=== PATIENT | female | born 1975 | race Caucasian/White ===

== ENCOUNTER 2017-12-24 15:13 | Emergency (ER) | payer MEDICAID ==
[~2017-12-24] VITALS: Ht 154.9 cm; Wt 87.1 kg
[2017-12-24 15:18] VITALS: BP 120/83
--- NOTE | 2017-12-24 16:48 | NUR ---
PT AMBULATES TO BED 6
--- NOTE | 2017-12-24 16:58 | NUR ---
42 YO FEMALE BIB SELF FOR LEFT ANKLE PAIN . DENIES N/V/D; SKIN IS PINK/WARM/DRY; AAOX4 WITH EVEN AND STEADY GAIT; LUNGS CLEAR BL; HR EVEN AND REGULAR; PT DENIES ANY FEVER, CP, SOB, OR COUGH AT THIS TIME; PATIENT STATES PAIN OF 8/10 AT THIS TIME; VSS; PATIENT POSITIONED FOR COMFORT; HOB ELEVATED; BEDRAILS UP X2; BED DOWN. ER MD MADE AWARE OF PT STATUS.
[2017-12-24] MEDS ORDERED: traMADol 50 MG TAB PO ONE (17:00)
[2017-12-24] MEDS ORDERED: KETOROLAC 60 MG/2 ML VIAL IM ONE (17:00)
[2017-12-24 18:47] VITALS: BP 120/83
--- NOTE | 2017-12-24 18:49 | NUR ---
D/c pt home in personal vehicle. Pt was d/c with Volarent XR and pt education and information was given on medication. Answered all questions from Pt and she denied any additional questions. Educated pt on when to call 911, reutrn to ER and or call Primary care physician. Pt stated pain had subsided after compression wrap.
== END 2017-12-24 18:49 | disposition home or self-care (01) ==
LOC: MED 15:13
DX: S93.402A Sprain of unspecified ligament of left ankle, initial encounter (principal); W18.30XA Fall on same level, unspecified, initial encounter; Y93.89 Activity, other specified; Y92.89 Other specified places as the place of occurrence of the external cause; Y99.8 Other external cause status
CPT/HCPCS: 73610; 73630; 96372; 99284; J1885; Q0092

== ENCOUNTER 2020-08-18 11:31 | Emergency (ER) | payer SELFPAY ==
[~2020-08-18] VITALS: Ht 154.9 cm; Wt 95.3 kg
[2020-08-18 11:36] VITALS: BP 187/89
--- NOTE | 2020-08-18 11:40 | NUR ---
PT AMBULATED TO BED 6, STEADY GAIT.
--- NOTE | 2020-08-18 11:53 | NUR ---
45 Y/F PRESENTS TO ED C C/O LEFT SIDED BODY PAIN AND NAUSEA S/P RECEIVING 2ND DOSE OF MODERNA VACCINE LAST SATURDAY. PT REPORTS SINCE SHE HAD HER SECOND DOSE OF THE VACCINE PATIENT HAS BEEN HAVING LEFT SIDED BODY PAIN 8/10, SHARP PAIN W/ NAUSEA. PT ALSO REPORTS HEADACHE, AND SOB. RR EVEN AND UNALBORED. DENIES COUGH OR SICK CONTACTS. PT ALSO REPORTS LOW BACK PAIN, DENIES URINARY FREQ OR HEMATURIA. PT TOOK MOTRIN AT HOME WITH NO RELIEF. NO PMH NKDA
--- NOTE | 2020-08-18 13:01 | NUR ---
LEODAN IGNACIO AT BEDSIDE EVALUATING PT.
[2020-08-18] MEDS ORDERED: MORPHINE SULFATE 4 MG/ML SYR IVP ONE (13:10)
[2020-08-18] MEDS ORDERED: NACL 0.9% 1,000 ML IV ONE (13:10)
[2020-08-18] MEDS ORDERED: ONDANSETRON 4 MG/2 ML VIAL IVP ONE (13:10)
--- NOTE | 2020-08-18 13:30 | NUR ---
STAT LABS DRAWN FROM AND GIVEN TO PHLEB. JACK
[2020-08-18 13:34] LABS: BASOPHILS # (AUTO) 0.2 K/uL (0.00-0.22); BASOPHILS % (AUTO) 1.3 % (0.0-2.0); EOSINOPHILS % (AUTO) 0.2 % (0.0-4.0); HEMOGLOBIN 11.4 g/dL (12.0-16.0); LYMPHOCYTES # (AUTO) 2.5 K/uL (2.5-16.5); LYMPHOCYTES % (AUTO) 19.3 % (20.5-51.1); MEAN CORPUSCULAR HEMOGLOBIN 27 pg (27-31); MEAN CORPUSCULAR HGB CONC 33 g/dL (33-37); MEAN CORPUSCULAR VOLUME 81.2 fL (80-94); MONOCYTES # (AUTO) 0.4 K/uL (0.8-1.0); NEUTROPHILS # (AUTO) 9.8 K/uL (1.8-7.7); NEUTROPHILS % (AUTO) 76.2 % (42.2-75.2); PLATELET COUNT (AUTO) 428 K/uL (140-450); RED BLOOD CELL COUNT(AUTO) 4.31 MIL/uL (4.20-5.40); RED CELL DISTRIBUTION WIDTH 14.7 % (11.6-13.7); WHITE BLOOD COUNT (AUTO) 12.9 K/uL (4.8-10.8)
[2020-08-18 13:40] LABS: APPEARANCE,URINE CLEAR (CLEAR); BILIRUBIN,URINE NEGATIVE (NEGATIVE); BLOOD, URINE TRACE-I (NEGATIVE); COLOR,URINE YELLOW (YELLOW); LEUKOCYTE ESTERASE ,URINE NEGATIVE (NEGATIVE); NITRITE, URINE NEGATIVE (NEGATIVE); UGLUCOSE NEGATIVE (NEGATIVE)
--- NOTE | 2020-08-18 13:46 | NUR ---
PT WHEELED TO CT VIA WHEELCHAIR.
[2020-08-18 13:48] LABS: ALBUMIN 3.4 g/dL (3.4-5.0); ANION GAP 9.9 (8-16); CARBON DIOXIDE 29.8 mmol/L (21-32); CREATININE 0.8 mg/dL (0.6-1.3); POTASSIUM 3.7 mmol/L (3.5-5.1); TOTAL BILIRUBIN 0.3 mg/dL (0.0-1.0)
--- NOTE | 2020-08-18 13:57 | NUR ---
Patient returned from CT scan.
--- NOTE | 2020-08-18 14:49 | NUR ---
LEODAN Judd at bedside re-evaluating patient.
[2020-08-18] MEDS ORDERED: CYCL-711 PO (14:57)
[2020-08-18] MEDS ORDERED: IBUP-2213 PO (14:57)
[2020-08-18] MEDS ORDERED: PRED20TA5 PO (14:57)
[2020-08-18 15:08] VITALS: BP 158/92
--- NOTE | 2020-08-18 15:08 | NUR ---
Patient discharged with v/s stable. Written and verbal after care instructions given and explained. Patient alert, oriented and verbalized understanding of instructions. Ambulatory with steady gait. All questions addressed prior to discharge. ID band removed. Patient advised to follow up with PMD. Rx of prednisone, Cyclobenzaprine, ibuprofen given. Patient educated on indication of medication including possible reaction and side effects. Opportunity to ask questions provided and answered.
== END 2020-08-18 15:08 | disposition home or self-care (01) ==
LOC: MED 11:31
DX: K80.20 Calculus of gallbladder without cholecystitis without obstruction (principal); N83.201 Unspecified ovarian cyst, right side; R03.0 Elevated blood-pressure reading, without diagnosis of hypertension
CPT/HCPCS: 36415; 74176; 80053; 81003; 81025; 83690; 85025; 96361; 96374; 96375; 99284; J2270; J2405; J7030; 99283; 99285